=== PATIENT | male | born 1980 | race Caucasian/White ===

== ENCOUNTER 2021-11-15 19:30 | Inpatient (IN) | payer OTHER ==
--- OUTSIDE RECORDS SUMMARY | 2021-11-15 19:32 | XMS REPORT | Continuity of Care Document ---
:1980 Author Organization [facility] t Address [address] [place] [address] Care Team Providers Name Role Phone Luis Harris Primary Care Physician Therapy, Adc Covid Infusion Attending Clinician Unavailable Carlos Manuel Braswell MD Attending Clinician CARLOS MANUEL BRASWELL Attending Clinician Unavailable JUAN_Amanda Attending Clinician Unavailable Doctor Unassigned, [place] Attending Clinician Unavailable Venkatesh Martinez Attending Clinician [phone] TANO Admitting Clinician Unavailable Payers Payer Name Policy Type Policy Number Effective Date Expiration Date S ajit [place] [id number] 2019 00:[place]:00 [place] Problems This patient has no known problems. Allergies, Adverse Reactions, Alerts Allergy Allergy Status Severity Reaction(s) Onset Inactive Treating Comm ents Source Name Type Date Date Clinician NO KNOWN Drug Active Univers ALLERGIE Class ity of S [facility] Social History Social Habit Start Date Stop Date Quantity Comments Source Sex Assigned At [birth year] [facility] 00:00:00 00:00:00 [facility] Branch Smoking Status Start Date Stop Date Source Unknown if ever smoked [facility] Medications Ordered Filled Start Stop Current Ordering Indication Dosage Frequency Signature Comments Components Source Medication Medication Date Date Medication? Clinician (SIG) Name Name casirivimab 202- No [id number] 1200mg 1,200 mg, Univers -imdevimab 10-20 Subcutaneo it y of (REGEN-COV 23:00: 21:49 [place], ONCE, [place] (EUA)) 00 :00 1 dose, Medical injection 10/20/20 Bran ch 1,200 mg at 1800, Routine Vital Signs Vital Name Observation Time Observation Value Comments Source Systolic blood 2020-10-20 22:28:00 128 mm[Hg] Univer sity of pressure [facility] Diastolic blood 2020-10-20 22:28:00 86 mm[Hg] Unive rsity of [facility] Heart rate 2020-10-20 22:28:00 87 /min [facility] Body temperature 2020-10-20 22:28:00 36.89 [facility] Respiratory rate 2020-10-20 22:28:00 19 /min [facility] Oxygen saturation in 2020-10-20 22:28:00 95 /min [facility] Arterial blood by [facility] Pulse oximetry [place] Body height 2020-10-20 21:42:00 182.9 cm [facility] Body weight 2020-10-20 21:42:00 104.327 kg [facility] BMI 2020-10-20 21:42:00 31.19 kg/m2 [facility] Procedures Procedure Date / Time Performed Performing Clinician Cristi KINGTRAC2 CONSENT 2020-10-20 05:01:00 Doctor Unassigned, No Unive [facility] Encounters Start End Encounter Admission Attending Care Care Encounter Source Date/Time Date/Time Type Type Clinicians Facility Department ID 2020-10-20 2020-10-20 Nurse Therapy, Adc Covid Infusion [facility] [id number] Univers 16:05:40 17:05:40 Visit Carlos Manuel Braswell [id number] [place] [id number] Zuleyma driscoll Surgical [id number] [facility] 0[address] Branch 2020-10-20 2020-10-20 Outpatient Monica BRASWELL [facility] [id number] Univers 17:00:00 17:00:00 CARLOS MANUEL rick [facility] 2020-10-20 2020-10-20 Outpatient [facility] [id number] [place] 03:10:00 03:10:00 [id number] 2020-10-20 2020-10-20 Orders Doctor RENETTA [id number] Univers 00:00:00 00:00:00 Only Unassigned, JOSE [id number] ity of [place] [facility] [id number] [place] as [id number] [place] [address] Branch 2020-10-20 2020-10-20 Outpatient Juan [facility] [id number] 00:00:00 00:00:00 Venkatesh [id number] Results This patient has no known results.
[2021-11-15 20:44] LABS: Absolute Lymphocytes (CBC) 2.6 K/uL (0.7-4.9); Hematocrit 49.7 % (39.6-49.0); Lymphocytes % 34.6 % (15.3-44.8); MCV 88.6 fL (80-100); MPV 6.9 fL (7.6-11.3); RBC Red Blood Cell Count 5.61 M/uL (4.33-5.43)
[2021-11-15] MEDS ORDERED: METOPROLOL TAR 50 MG TAB ONE (20:50)
[2021-11-15] MEDS ORDERED: ASPIRIN 81 MG CHEWABLE TABLET ONE (20:50)
[2021-11-15] MEDS ORDERED: METOPROLOL TARTRATE 5 MG/5 ML INJ IV ONE (20:50)
[2021-11-15 20:55] LABS: Magnesium 2.3 mg/dL (1.8-2.4); Potassium 3.8 mmol/L (3.5-5.1)
[2021-11-15 20:56] LABS: Protime INR 1.08
[2021-11-15 21:01] LABS: Troponin High Sensitivity 17.9 pg/mL (<58.9)
[2021-11-15 21:14] LABS: Urine Blood Negative (Negative); Urine Glucose Negative (Negative); Urine Protein Negative (Negative)
[2021-11-15 21:32] LABS: Barbiturates NEGATIVE (NEGATIVE); Benzodiazepines NEGATIVE (NEGATIVE); Cocaine NEGATIVE (NEGATIVE); METHAMPHETAM NEGATIVE (NEGATIVE); Methadone NEGATIVE (NEGATIVE); Opiates NEGATIVE (NEGATIVE); Phencyclidine NEGATIVE (NEGATIVE); THC Cannibis NEGATIVE (NEGATIVE)
--- NOTE | 2021-11-15 21:45 | RAD REPORT ---
EXAM DESCRIPTION: CT - Chest For Pe Angio - 11/15/2021 9:18 pm CLINICAL HISTORY: shortness of breath COMPARISON: Chest Single View dated 11/15/2021 TECHNIQUE: Dynamically enhanced 3 mm thick images of the chest were obtained during administration o f approximately 150mL Isovue 370 IV contrast. Coronal and oblique MIP reconstruction images were gene rated and reviewed. Exam utilizes a protocol to evaluate the pulmonary arterial tree. All CT scans are performed using dose optimization technique as appropriate and may include automated exposure control or mA/KV adjustment according to patient size. FINDINGS: No pulmonary emboli are identified. The aorta as imaged shows no acute or suspicious finding. No pericardial thickening or effusion. No mass or dense consolidation. Minimal ground-glass opacities are present in each lower lobe probabl y atelectasis. Minimal alveolar edema is possible. No pleural effusion or pleural thickening. No mediastinal or hilar suspicious masses. No chest wall masses or abnormal axillary lymphadenopathy. IMPRESSION: No pulmonary emboli identified. Minimal bilateral lower lobe ground-glass opacities are favored to be atelectasis rather than infiltr ate or edema.
[2021-11-15 21:50] LABS: Urine Crystals Unidentified Few /HPF (None Seen); Urine RBC <5 /HPF (None Seen)
--- NOTE | 2021-11-15 21:50 | RAD REPORT ---
EXAM DESCRIPTION: RAD - Chest Single View - 11/15/2021 9:27 pm CLINICAL HISTORY: PALPITATIONS COMPARISON: Portable 03/29/2017 TECHNIQUE: AP portable chest image was obtained 11/15/2021 9:27 pm . FINDINGS: Lung volumes are low accentuating lung parenchymal pattern. This limits lung base assessme nt. No significant degree of failure or volume overload seen. No focal consolidation. Heart and vasculature are normal. No measurable pleural effusion and no pneumothorax. No acute bony abnormality seen. No acute aortic findings suspected. IMPRESSION: Limited portable study without acute cardiopulmonary finding.
[2021-11-15] MEDS ORDERED: ENOXAPARIN 100 MG/ML SYR SQ ONE (22:05)
[2021-11-15] MEDS ORDERED: DIGOXIN 0.25 MG/ML AMP ONE (22:05)
[2021-11-15 22:45] LABS: SARS-CoV-2 Antigen Rapid Res Negative (Negative)
[2021-11-15 22:57] LABS: T3 Free 3.54 pg/mL (2.18-3.98)
[2021-11-15] MEDS ORDERED: NA CHLORIDE 0.9% 1,000 ML ONE (23:08)
[2021-11-15] MEDS ORDERED: SOTALOL HCL 80 MG TAB ONE (23:08)
--- NOTE | 2021-11-15 23:17 | P.HP ---
Certification for Inpatient Patient admitted to: Inpatient With expected LOS: <2 Midnights Patient will require the following post-hospital care: None Practitioner: I am a practitioner with admitting privileges, knowledge of patient current condition, hospital course, and medical plan of care. Services: Services provided to patient in accordance with Admission requirements found in Title 42 Section 412.3 of the Code of Federal Regulations Patient History Date of Service: 11/16/21 Reason for admission: Afib RVR History of Present Illness: Patient is a 41 year old male with afib and HTN who presented to the ED with complaints of palpitations and shortness of breath. He reports that he woke up from a nap today around 7PM and noticed it. He is not on any anticoagulants or rate controlling medications. Patient reports that he feels himself go into afib RVR every 2-3 weeks but it typically goes away quickly. He was hospitalized in 2018 for afib RVR and had to be cardioverted. Today, his rate has been fluctuating from 110s-160s. He was given several rounds of PO metoprolol, IV metoprolol, and digoxin without significant improvement. Cardiology was consulted and recommended sotalol and therapeutic lovenox. BP has been stable. Patient is awake, alert, in no distress. He is admitted for further management. Allergies codeine Allergy (Verified 03/29/17 05:53) Hives/Rash Home medications list reviewed: Yes Home Medications: Aspirin 81 mg PO DAILY #30 tab.chew 03/30/17 Sotalol HCl [Betapace*] 80 mg PO BID 6AM 6PM #60 tab 03/30/17 - Past Medical/Surgical History Has patient received pneumonia vaccine in the past: No -: Afib -: Hypertension Past Surgical History: Patient denies surgical history Psychosocial/ Personal History: Patient is . - Family History Family History: Reviewed- Non-Contributory - Family History Father -: Cancer - Social History Smoking Status: Current some day smoker (vapes) Alcohol use: No CD- Drugs: No Caffeine use: Yes Place of Residence: Home Review of Systems Respiratory: Shortness of Breath Cardiovascular: Palpitations Physical Examination - Physical Exam General: Alert, In no apparent distress HEENT: Atraumatic, PERRLA, EOMI, Sclerae nonicteric Neck: Supple, 2+ carotid pulse no bruit, No LAD, Without JVD or thyroid abnormality Respiratory: Clear to auscultation bilaterally, Normal air movement Cardiovascular: Irregular heart rate/rhythm Gastrointestinal: Normal bowel sounds, No tenderness Musculoskeletal: No tenderness Integumentary: No rashes Neurological: Normal speech, Normal strength at 5/5 x4 extr, Normal tone, Normal affect - Studies Laboratory Data (last 24 hrs) 11/15/21 20:30: PT 11.9, INR 1.08 11/15/21 20:30: WBC 7.50, Hgb 16.9, Hct 49.7 H, Plt Count 305 11/15/21 20:30: Sodium 140, Potassium 3.8, BUN 13, Creatinine 1.20, Glucose 101, Magnesium 2.3 Assessment and Plan - Problems (Diagnosis) (1) Atrial fibrillation with rapid ventricular response Current Visit: Yes Status: Acute (2) Hypertension Current Visit: Yes Status: Acute Qualifiers: Hypertension type: primary hypertension Qualified Code(s): I10 - Essential (primary) hypertension - Plan -Cardiology consult -Monitor on telemetry -Therapeutic lovenox q12h -Sotalol 80 mg PO BID -Patient has required cardioversion in past -IV fluids for BP support -Reconcile and continue home medications -Monitor and replete electrolytes per protocol -Full code Discharge Plan: Home Plan to discharge in: 48 Hours - Advance Directives Does patient have a Living Will: No Does patient have a Durable POA for Healthcare: No - Code Status/Comfort Care Code Status Assessed: Yes (Full) Critical Care: No Time Spent Managing Pts Care (In Minutes): 50
--- NOTE | 2021-11-15 23:22 | ER ---
Nurse's Notes [facility] Name: Shan Mendieta Age: 41 yrs Sex: Male : 1980 Arrival Date: 11/15/2021 Time: 19:33 Bed 8 Private MD: Diagnosis: Unspecified atrial fibrillation Presentation: 11/15 19:46 Chief complaint: Patient states: "I think my a-fib is acting up. I feel like my heart as6 is racing and it's hard to catch my breath". Coronavirus screen: At this time, the client does not indicate any symptoms associated with coronavirus-19. Ebola Screen: No symptoms or risks identified at this time. Initial Sepsis Screen: Does the patient meet any 2 criteria? No. Patient's initial sepsis screen is negative. Does the patient have a suspected source of infection? No. Patient's initial sepsis screen is negative. Risk Assessment: Do you want to hurt yourself or someone else? Patient reports no desire to harm self or others. Onset of symptoms was November 15, 2021 at 18:30. 19:46 Method Of Arrival: Ambulatory as6 19:46 Acuity: MIRLANDE 3 as6 Triage Assessment: 19:51 General: Appears in no apparent distress. Behavior is calm, cooperative. Pain: as6 Complains of pain in chest. Cardiovascular: Reports palpitations, shortness of breath. Respiratory: Reports shortness of breath Respiratory effort is even, unlabored. Historical: - Allergies: 19:49 No Known Drug Allergies; as6 - Home Meds: 19:49 lisinopril 30 mg Oral tab 1 tab twice a day [Active]; as6 - PMHx: 19:49 palpitations; Migraines; as6 - PSHx: 19:49 None; as6 - Immunization history:: Client reports having NOT received the Covid vaccine. - Social history:: Smoking status: Reported history of juuling and/or vaping. Screenin:00 Abuse screen: Denies threats or abuse. Nutritional screening: No deficits noted. jb4 Tuberculosis screening: No symptoms or risk factors identified. Fall Risk None identified. Assessment: 20:00 General: Appears in no apparent distress. comfortable, Behavior is calm, cooperative, jb4 appropriate for age. Pain: Denies pain. Neuro: Level of Consciousness is awake, alert, obeys commands, Oriented to person, place, time, situation. Cardiovascular: Patient's skin is warm and dry. Rhythm is SVT. Respiratory: Airway is patent Respiratory effort is even, unlabored, Respiratory pattern is regular, symmetrical. GI: No signs and/or symptoms were reported involving the gastrointestinal system. : No signs and/or symptoms were reported regarding the genitourinary system. EENT: No signs and/or symptoms were reported regarding the EENT system. Derm: Skin is intact, Skin is pink, warm \\T\\ dry. Musculoskeletal: Circulation, motion, and sensation intact. Range of motion: intact in all extremities. 21:00 Reassessment: Patient appears in no apparent distress at this time. Patient and/or jb4 family updated on plan of care and expected duration. Pain level reassessed. Patient is alert, oriented x 3, equal unlabored respirations, skin warm/dry/pink. 21:14 Reassessment: Pt to CT'. jb4 21:32 Reassessment: Pt back from CT. jb4 22:00 Reassessment: Patient appears in no apparent distress at this time. Patient and/or jb4 family updated on plan of care and expected duration. Pain level reassessed. Patient is alert, oriented x 3, equal unlabored respirations, skin warm/dry/pink. 23:52 Reassessment: Patient appears in no apparent distress at this time. Patient and/or jb4 family updated on plan of care and expected duration. Pain level reassessed. Patient is alert, oriented x 3, equal unlabored respirations, skin warm/dry/pink. Patient states feeling better. 11/16 00:30 Reassessment: Patient appears in no apparent distress at this time. Patient and/or jb4 family updated on plan of care and expected duration. Pain level reassessed. Patient is alert, oriented x 3, equal unlabored respirations, skin warm/dry/pink. 01:30 Reassessment: Patient appears in no apparent distress at this time. Patient and/or jb4 family updated on plan of care and expected duration. Pain level reassessed. Patient is alert, oriented x 3, equal unlabored respirations, skin warm/dry/pink. Vital Signs: 11/15 19:46 BP 126 / 92; Pulse 74; Resp 16 S; Temp 99.0(O); Pulse Ox 100% on R/A; Weight 99.79 kg as6 (R); Height 6 ft. 0 in. (182.88 cm) (R); Pain 02/22; 20:55 BP 110 / 81; Pulse 171; Resp 19; Pulse Ox 98% on R/A; jb4 21:00 BP 127 / 86; Pulse 164; Resp 20 S; Pulse Ox 95% ; jb4 21:25 BP 123 / 81; Pulse 158; Resp 22 S; Pulse Ox 96% on R/A; jb4 22:16 BP 126 / 70; Pulse 160; Resp 27; Pulse Ox 96% on R/A; jb4 23:45 BP 126 / 90; Pulse 133; Resp 23; Pulse Ox 95% on R/A; jb4 11/16 00:30 BP 113 / 84; Pulse 121; Resp 16; Pulse Ox 98% on R/A; jb4 01:30 BP 122 / 87; Pulse 140; Resp 23; Pulse Ox 98% on R/A; jb4 11/15 19:46 Body Mass Index 29.84 (99.79 kg, 182.88 cm) as6 ED Course: 11/15 19:33 Patient arrived in ED. dt4 19:49 Triage completed. as6 19:50 Stefan Gamboa PA is PHCP. cp 19:50 Stefan Alejandro MD is Attending Physician. cp 19:51 Arm band placed on. as6 20:00 Patient has correct armband on for positive identification. Bed in low position. Call 4 light in reach. Side rails up X 1. Client placed on continuous cardiac and pulse oximetry monitoring. NIBP monitoring applied. 20:30 Initial lab(s) drawn, by me, sent to lab. Inserted saline lock: 18 gauge in left jb4 antecubital area, using aseptic technique. Blood collected. 20:52 Trent Mendes, ALEXANDER is Primary Nurse. jb4 22:20 Asset Analyst paged at 22:21. mw2 23:20 Lamin Rivera MD is Hospitalizing Provider. cp 11/16 08:39 SARS RAPID Sent. mb8 08:39 XRAY Chest (1 view) Sent. mb8 Administered Medications: 11/15 20:53 Drug: Aspirin Chewable Tablet 324 mg Route: PO; jb4 11/16 14:03 Follow up: Response: No adverse reaction mb8 11/15 20:53 Drug: Metoprolol 50 mg Route: PO; 4 11/16 14:03 Follow up: Response: No adverse reaction 8 11/15 20:55 Drug: Metoprolol 5 mg Route: IVP; Site: left antecubital; jb4 21:07 Drug: Metoprolol 5 mg Route: IVP; Site: left antecubital; jb4 21:32 Drug: Metoprolol 5 mg Route: IVP; Site: left antecubital; 4 11/16 14:03 Follow up: Response: No adverse reaction 8 11/15 22:15 Drug: Digoxin 0.5 mg Route: IVP; Site: left antecubital; 4 11/16 14:02 Follow up: Response: No adverse reaction 8 11/15 22:15 Drug: Lovenox (enoxaparin) 1 mg/kg Route: Sub-Q; Site: abdomen; 4 11/16 14:03 Follow up: Response: No adverse reaction 8 11/15 23:18 Drug: Sotalol 80 mg Route: PO; 4 11/16 14:03 Follow up: Response: No adverse reaction 8 11/15 23:18 Drug: NS 0.9% 1000 ml Route: IV; Rate: 1 bolus; Site: left antecubital; [facility] 11/16 00:42 Follow up: IV Status: Completed infusion; IV Intake: 1000ml ha1 00:25 Drug: Magnesium Sulfate 2 grams Route: IVPB; Infused Over: 2 hrs; Site: left kd3 antecubital; 02:46 Follow up: IV Status: Completed infusion; IV Intake: 50ml kd3 02:44 CANCELLED (Duplicate Order): Magnesium Sulfate 1 grams IVPB once over 1 hrs kd3 Medication: 11/15 20:00 VIS not applicable for this client. jb4 Intake: 11/16 00:42 IV: 1000ml; Total: 1000ml. ha1 02:46 IV: 50ml; Total: 1050ml. kd3 Outcome: 11/15 23:21 Decision to Hospitalize by Provider. 11/16 14:43 Patient left the ED. jd3 Signatures: Stefan Gamboa PA PA cp Bryson, James, RN RN jb4 Edward Stevens RN RN jd3 Kasie Lopez 2 Home Franks RN RN as6 Lexie Wright RN RN kd3 Shania Nguyen, RN RN ha1 Steven Amaya RN RN mb8 Iveth Mcclelland dt4 Corrections: (The following items were deleted from the chart) 02:44 00:56 Magnesium Sulfate 1 grams IVPB in left antecubital over 1 hrs kd3 kd3 02:45 02:45 Magnesium Sulfate 2 grams IVPB in left antecubital over 2 hrs kd3 kd3
--- NOTE | 2021-11-15 23:22 | EDPHYS ---
Physician Documentation [facility] Name: Shan Mendieta Age: 41 yrs Sex: Male : 1980 Arrival Date: 11/15/2021 Time: 19:33 Bed 8 Private MD: ED Physician Stefan Alejandro HPI: 11/15 20:05 This 41 yrs old Male presents to ER via Ambulatory with complaints of Breathing cp Difficulty, HEART RACING. 20:05 The patient presents with a history of heart racing. cp 20:05 Context: The symptoms occur at rest. Onset: The symptoms/episode began/occurred today. cp Duration: The patient or guardian reports a single episode, that is still ongoing, and unchanged. Associated signs and symptoms: Pertinent positives: SOB, Pertinent negatives: chest pain, cough, fever, syncope, vomiting. Severity of symptoms: in the emergency department the symptoms are unchanged despite home interventions. The patient has experienced similar episodes in the past, a few times, today's symptoms are similar, to when the patient was apparently diagnosed with atrial fibrillation. Historical: - Allergies: 19:49 No Known Drug Allergies; as6 - Home Meds: 19:49 lisinopril 30 mg Oral tab 1 tab twice a day [Active]; as6 - PMHx: 19:49 palpitations; Migraines; as6 - PSHx: 19:49 None; as6 - Immunization history:: Client reports having NOT received the Covid vaccine. - Social history:: Smoking status: Reported history of juuling and/or vaping. ROS: 20:10 Constitutional: Negative for body aches, chills, fever, poor PO intake. cp 20:10 Eyes: Negative for injury, pain, redness, and discharge. cp 20:10 ENT: Negative for drainage from ear(s), ear pain, sore throat, difficulty swallowing, difficulty handling secretions. 20:10 Cardiovascular: Positive for palpitations, Negative for chest pain, edema. 20:10 Respiratory: Positive for shortness of breath, Negative for cough, wheezing. 20:10 Abdomen/GI: Negative for abdominal pain, vomiting, diarrhea, constipation. 20:10 Back: Negative for injury or acute deformity, pain at rest, pain with movement, radiated pain. 20:10 : Negative for urinary symptoms. 20:10 Neuro: Negative for altered mental status, dizziness, syncope, weakness. 20:10 All other systems are negative. Exam: 20:15 Constitutional: The patient appears in no acute distress, alert, awake, comfortable, cp non-diaphoretic, non-toxic, well developed, well nourished. 20:15 Head/Face: Normocephalic, atraumatic. cp 20:15 Eyes: Periorbital structures: appear normal, Conjunctiva: normal, no exudate, no injection, Sclera: no appreciated abnormality, Lids and lashes: appear normal, bilaterally. 20:15 ENT: External ear(s): are unremarkable, Nose: is normal, Mouth: Lips: moist, Oral mucosa: pink and intact, moist, Posterior pharynx: Airway: no evidence of obstruction, patent, swelling, is not appreciated, erythema, is not appreciated. 20:15 Neck: ROM/movement: is normal, is supple, without pain, no range of motions limitations. 20:15 Chest/axilla: Inspection: normal, Palpation: is normal, no crepitus, no tenderness. 20:15 Cardiovascular: Rate: normal, Edema: is not appreciated, JVD: is not appreciated. 20:15 Respiratory: the patient does not display signs of respiratory distress, Respirations: normal, no use of accessory muscles, no retractions, labored breathing, is not present, Breath sounds: are clear throughout, no decreased breath sounds, no stridor, no wheezing. 20:15 Abdomen/GI: Inspection: abdomen appears normal, Bowel sounds: active, all quadrants, Palpation: abdomen is soft and non-tender, in all quadrants. 20:15 Back: pain, is absent, ROM is normal. 20:15 Skin: cellulitis, is not appreciated, no rash present. 20:15 Neuro: Orientation: to person, place \T\ time. Mentation: is normal, Cerebellar function: is grossly normal, Motor: moves all fours, strength is normal, Sensation: is normal. 20:35 ECG was reviewed by the Attending Physician. cp Vital Signs: 19:46 BP 126 / 92; Pulse 74; Resp 16 S; Temp 99.0(O); Pulse Ox 100% on R/A; Weight 99.79 kg as6 (R); Height 6 ft. 0 in. (182.88 cm) (R); Pain 1/10; 20:55 BP 110 / 81; Pulse 171; Resp 19; Pulse Ox 98% on R/A; jb4 21:00 BP 127 / 86; Pulse 164; Resp 20 S; Pulse Ox 95% ; jb4 21:25 BP 123 / 81; Pulse 158; Resp 22 S; Pulse Ox 96% on R/A; jb4 22:16 BP 126 / 70; Pulse 160; Resp 27; Pulse Ox 96% on R/A; jb4 23:45 BP 126 / 90; Pulse 133; Resp 23; Pulse Ox 95% on R/A; jb4 11/16 00:30 BP 113 / 84; Pulse 121; Resp 16; Pulse Ox 98% on R/A; jb4 01:30 BP 122 / 87; Pulse 140; Resp 23; Pulse Ox 98% on R/A; jb4 11/15 19:46 Body Mass Index 29.84 (99.79 kg, 182.88 cm) as6 MDM: 11/15 19:52 Patient medically screened. [facility] 22:30 Physician consultation: Hayden Henley MD was contacted at 22:31, regarding consult, cp patient's condition, wants Sotolol 80 mg to be given now and then 80 mg BID. 23:00 Data reviewed: vital signs, nurses notes, lab test result(s), EKG, radiologic studies, cp CT scan, plain films. 23:00 Differential diagnosis: arrythmia, dehydration, stress disorder. Test interpretation: cp by ED physician or midlevel provider: ECG, plain radiologic studies. Physician consultation: Karey Henry PA-C was contacted at 23:00, regarding admission, patient's condition, and will see patient in ED. 11/15 20:25 Order name: Basic Metabolic Panel cp 11/15 20:25 Order name: CBC with Diff cp 11/15 20:25 Order name: D-Dimer cp 11/15 20:25 Order name: Magnesium cp 11/15 20:25 Order name: NT PRO-BNP cp 11/15 20:25 Order name: PT-INR cp 11/15 20:25 Order name: Troponin HS cp 11/15 20:32 Order name: TSH cp 11/15 20:32 Order name: T3 Free cp 11/15 20:32 Order name: Urine Microscopic Only cp 11/15 20:32 Order name: UDS cp 11/15 20:51 Order name: CBC with Automated Diff; Complete Time: 21:44 EDMS 11/15 21:44 Interpretation: Normal except: RBC 5.61; HCT 49.7; MPV 6.9. cp 11/15 20:55 Order name: Basic Metabolic Panel; Complete Time: 00:35 EDMS 11/15 20:55 Order name: Magnesium; Complete Time: 00:35 EDMS 11/15 20:25 Order name: XRAY Chest (1 view) cp 11/15 20:56 Order name: Protime (+INR); Complete Time: 21:44 EDMS 11/15 20:56 Order name: D-Dimer; Complete Time: 21:44 EDMS 11/15 21:02 Order name: Troponin High Sensitivity; Complete Time: 00:35 EDMS 11/15 21:02 Order name: NT PRO-BNP; Complete Time: 00:35 EDMS 11/15 21:14 Order name: Urine Dipstick-Ancillary; Complete Time: 21:44 EDMS 11/15 21:32 Order name: Urine Drug Screen; Complete Time: 21:44 EDMS 11/15 21:50 Order name: Urine Microscopic Only; Complete Time: 21:51 EDMS 11/15 21:52 Order name: SARS RAPID cp 11/15 22:45 Order name: SARS-COV-2 Antigen Rapid; Complete Time: 00:35 EDMS 11/15 22:57 Order name: T3 Free; Complete Time: 00:35 EDMS 11/15 22:57 Order name: Thyroid Stimulating Hormone; Complete Time: 00:35 EDMS 11/16 05:50 Order name: CBC with Automated Diff; Complete Time: 08:20 EDMS 11/16 06:12 Order name: Basic Metabolic Panel; Complete Time: 08:20 EDMS 11/16 06:12 Order name: Lipid Profile; Complete Time: 08:20 EDMS 11/16 06:12 Order name: Magnesium; Complete Time: 08:20 EDMS 11/15 20:04 Order name: EKG; Complete Time: 20:04 cp 11/15 20:04 Order name: EKG - Nurse/Tech; Complete Time: 20:58 cp 11/15 20:25 Order name: Cardiac monitoring; Complete Time: 20:48 cp 11/15 20:25 Order name: IV Saline Lock; Complete Time: 20:58 cp 11/15 20:25 Order name: Labs collected and sent; Complete Time: 20:58 cp 11/15 20:25 Order name: O2 Per Protocol; Complete Time: 20:58 cp 11/15 20:25 Order name: O2 Sat Monitoring; Complete Time: 20:57 cp 11/15 20:32 Order name: Urine Dipstick-Ancillary (obtain specimen); Complete Time: 21:36 cp 11/15 20:50 Order name: CT Chest For PE Angio cp 11/15 21:46 Order name: CT; Complete Time: 21:51 EDMS 11/15 21:51 Order name: RAD; Complete Time: 21:51 EDMS 11/16 08:22 Order name: NPO; Complete Time: 08:39 denisse EC:35 Rate is 147 beats/min. Rhythm is irregular. QRS interval is normal. QT interval is cp normal. Interpreted by me. Reviewed by me. Administered Medications: 20:53 Drug: Aspirin Chewable Tablet 324 mg Route: PO; 11/16 14:03 Follow up: Response: No adverse reaction 11/15 20:53 Drug: Metoprolol 50 mg Route: PO; 11/16 14:03 Follow up: Response: No adverse reaction 11/15 20:55 Drug: Metoprolol 5 mg Route: IVP; Site: left antecubital; 4 21:07 Drug: Metoprolol 5 mg Route: IVP; Site: left antecubital; 4 21:32 Drug: Metoprolol 5 mg Route: IVP; Site: left antecubital; 4 11/16 14:03 Follow up: Response: No adverse reaction 11/15 22:15 Drug: Digoxin 0.5 mg Route: IVP; Site: left antecubital; 4 11/16 14:02 Follow up: Response: No adverse reaction 11/15 22:15 Drug: Lovenox (enoxaparin) 1 mg/kg Route: Sub-Q; Site: abdomen; 11/16 14:03 Follow up: Response: No adverse reaction 11/15 23:18 Drug: Sotalol 80 mg Route: PO; 4 11/16 14:03 Follow up: Response: No adverse reaction 11/15 23:18 Drug: NS 0.9% 1000 ml Route: IV; Rate: 1 bolus; Site: left antecubital; jb4 11/16 00:42 Follow up: IV Status: Completed infusion; IV Intake: 1000ml ha1 00:25 Drug: Magnesium Sulfate 2 grams Route: IVPB; Infused Over: 2 hrs; Site: left kd3 antecubital; 02:46 Follow up: IV Status: Completed infusion; IV Intake: 50ml kd3 02:44 CANCELLED (Duplicate Order): Magnesium Sulfate 1 grams IVPB once over 1 hrs kd3 Disposition Summary: 11/15/21 23:21 Hospitalization Ordered Hospitalization Status: Inpatient Admission cp Provider: Lamin Rivera cp Condition: Stable cp Problem: new cp Symptoms: have improved cp Bed/Room Type: Standard cp Location: Telemetry/MedSurg (Inpatient)(11/16/21 13:57) bd Room Assignment: 419(11/16/21 13:57) bd Diagnosis - Unspecified atrial fibrillation cp Forms: - Medication Reconciliation Form cp - SBAR form cp Signatures: Dispatcher [employer] EDTejal Tabor Corey, MD MD cha Page, Corey, PA PA cp Stacy Rock RN RN cg Bryson, James RN RN jb4 Home Franks RN RN as6 Lexie Wright RN RN kd3 Shania Nguyen RN ha1 Steven Amaya RN [id number] Corrections: (The following items were deleted from the chart) 11/15 23:54 23:21 Telemetry/MedSurg (Inpatient) cp cg 23:54 23:21 cp cg 11/16 02:44 00:36 Magnesium Sulfate 1 grams IVPB once over 1 hrs ordered. cp kd3 02:44 00:56 Magnesium Sulfate 1 grams IVPB once over 1 hrs given. kd3 kd3 02:44 02:44 Magnesium Sulfate 1 grams IVPB once over 1 hrs ordered. kd3 kd3 13:57 11/15 23:54 [facility] ER HOLD cg bd 11/16 13:57 11/15 23:54 ERHOLD- cg bd
[2021-11-16] MEDS ORDERED: SOTALOL HCL 80 MG TAB PO ONE (00:42)
[2021-11-16] MEDS ORDERED: Magnesium Sulfate 2gm IVPB 2 G/50 ML BAG IV ONE (00:46)
[2021-11-16] MEDS ORDERED: NA CHLORIDE 0.9% 1,000 ML ONE ×3 (00:47→07:38)
[2021-11-16] MEDS ORDERED: MAGNESIUM SULFATE 1 gm IVPB 0 GM/0 ML BAG IV ONE (00:49)
[2021-11-16] MEDS ORDERED: SOTALOL HCL 80 MG TAB ONE ×2 (00:49→06:15)
[2021-11-16] MEDS ORDERED: ACETAMINOPHEN 500 MG TAB PO PRN (01:59)
[2021-11-16] MEDS ORDERED: ONDANSETRON 4 MG/2 ML VIAL IV PRN (01:59)
[2021-11-16] MEDS: NA CHLORIDE 0.9% 1,000 ML IV SCH ×3 (01:59→17:53)
[2021-11-16 03:19] VITALS: BMI 31.1
[2021-11-16 05:48] LABS: Hematocrit 50.9 % (39.6-49.0); Lymphocytes % 39.6 % (15.3-44.8); MCV 90.9 fL (80-100); MPV 7.2 fL (7.6-11.3)
[2021-11-16] MEDS: SOTALOL HCL 80 MG TAB PO SCH ×2 (06:00→17:51)
[2021-11-16 06:11] LABS: Potassium 3.8 mmol/L (3.5-5.1)
[2021-11-16 06:12] LABS: Magnesium 2.6
[2021-11-16] MEDS ORDERED: ENOXAPARIN 100 MG/ML SYR SQ ONE (07:38)
[2021-11-16] MEDS: ENOXAPARIN 100 MG/ML SYR SQ SCH ×2 (07:45→20:53)
[2021-11-16] MEDS ORDERED: INFLUENZA VACCINE (for 6+ mo) 0.5 ML DOSE IMVAC ONE (09:00)
[2021-11-16] MEDS ORDERED: KCL 20 MEQ/100 mL IVPB 200 ML IV ONE (09:41)
[2021-11-16] MEDS: KCL 20 MEQ/100 mL IVPB 20 MEQ/100 ML BAG IV SCH ×2 (09:51→12:00)
--- NOTE | 2021-11-16 10:22 | CON ---
Date of Consultation: 11/16/2021 Reason For Consultation: Atrial fibrillation. History Of Present Illness: Mr. Mendieta is 41. Has had a history of AFib, hypertension, migraine. He supposed to be taking aspirin, lisinopril, and sotalol at home. He comes in back to the hospital wit h rapid atrial fibrillation, received metoprolol, received digoxin, continued to be in rapid AFib and was placed on sotalol. He remained in atrial fibrillation at this point. Rate is much better contr olled. Denied chest pain, nausea, vomiting, diaphoresis, PND, orthopnea, pedal edema, or syncope. D enied any fever or chills. Past Medical History: As stated above. Allergies: HE IS ALLERGIC TO CODEINE. Medications: As stated earlier. Review of Systems: Negative. Social History: Negative. Family History: Negative. Physical Examination: General: He is in atrial fibrillation. No acute distress, afebrile. Chest: Clear. Cardiac: Atrial fibrillation. No murmurs, gallops, or rubs. Abdomen: Benign. Extremities: Revealed no clubbing, cyanosis, or edema. Diagnostic Data: All within normal limits except for EKG showing atrial fibrillation. Impression And Plan: Paroxysmal atrial fibrillation. Echocardiogram is pending. Continue sotalol. We will also add digoxin to his regimen. Continue Lovenox for now. He really should be on anticoag ulation in the long run. If he does not convert with sotalol, we will plan a cardioversion down the road. MILAGRO Voice ID: [id number] Report ID: [id number]
[2021-11-16] MEDS ORDERED: FENTANYL CITR 100 MCG/2 ML ONE (12:04)
[2021-11-16] MEDS ORDERED: MIDAZOLAM HCL 10 ML ONE (12:05)
[2021-11-16] MEDS ORDERED: METOPROLOL TARTRATE 5 MG/5 ML INJ IV ONE (12:05)
[2021-11-16] MEDS ORDERED: ATROPINE SULF 1 MG/10 ML SYR IV ONE (12:05)
[2021-11-16] MEDS ORDERED: FLUMAZENIL 0.1 MG/ML (5 mL VIAL) IV ONE (12:05)
[2021-11-16] MEDS ORDERED: ONDANSETRON 4 MG/2 ML VIAL ONE (12:05)
[2021-11-16] MEDS ORDERED: PHENOL 1.4% ORAL SPRAY 180ML ONE (12:06)
[2021-11-16] MEDS ORDERED: LIDOCAINE VISCOUS 2% SOLN 15 ML UDC ONE (13:11)
[2021-11-16] MEDS ORDERED: propofoL 200 MG/20 ML VIAL IV ONE ×3 (13:25→13:28)
[2021-11-17 03:28] LABS: Absolute Lymphocytes (CBC) 2.3 K/uL (0.7-4.9); Hematocrit 47.3 % (39.6-49.0); Lymphocytes % 24.3 % (15.3-44.8); MCV 90.5 fL (80-100); MPV 7.3 fL (7.6-11.3); RBC Red Blood Cell Count 5.23 M/uL (4.33-5.43)
[2021-11-17 03:52] LABS: Potassium 3.8 mmol/L (3.5-5.1)
[2021-11-17] MEDS: NA CHLORIDE 0.9% 1,000 ML IV SCH (04:13)
[2021-11-17] MEDS ORDERED: POTASSIUM CL SA 10 MEQ TAB PO ONE (07:31)
--- NOTE | 2021-11-17 07:54 | EKG ---
Test Date: 2021-11-15 Test Time: 20:29:15 Staying Machine Operator: BREANNE MEASUREMENT RESULTS: Intervals: Rate: 147 DC: QRSD: 90 QT: 302 QTc: 472 [place]: P: DC: QRS: 19 T: 82 INTERPRETIVE STATEMENTS: Atrial fibrillation with rapid ventricular response with premature ventricular or aberrantly conducted complexes Nonspecific T wave abnormality Abnormal ECG Compared to ECG 03/29/2017 09:41:51 Ventricular premature complex(es) now present T-wave abnormality now present Sinus rhythm no longer present Electronically Signed On 11-17-21 07:48:34 CDT by Hayden Henley
[2021-11-17] MEDS: ENOXAPARIN 100 MG/ML SYR SQ SCH (08:09)
[2021-11-17] MEDS: SOTALOL HCL 80 MG TAB PO SCH (08:09)
--- NOTE | 2021-11-17 08:39 | TEE ---
TRANSESOPHAGEAL ECHOCARDIOGRAM REPORT CARDIOLOGY DEPARTMENT DATE OF STUDY: 11/16/2021 HEIGHT: 72 WEIGHT: 230 DIAGNOSIS: ATRIAL FIBRILLATION SCIENTIFIC WRITER COMMENTS: LELAND PERFORMED BY DR. BELTRAN CARDIAC HISTORY: CATHERIZATION: NO SURGERY: NO PROSTHETIC VALVE: NO PACEMAKER: NO 2 DIMENSIONAL ASSESSMENT: RIGHT ATRIUM: NORMAL LEFT ATRIUM: DILATED RIGHT VENTRICLE: NORMAL LEFT VENTRICLE: NORMAL TRICUSPID VALVE: NORMAL MITRAL VALVE: NORMAL PULMONIC VALVE: NORMAL AORTIC VALVE: NORMAL PERICARDIAL EFFUSION: NONE AORTIC ROOT: NORMAL EJECTION FRACTION: LEFT VENTRICULAR WALL MOTION: NORMAL DOPPLER/COLOR FLOW: TRACE TRICUSPID REGURGITATION. NORMAL RIGHT VENTRICULAR SYSTOLIC PRESSURE. COMMENTS: NORMAL TRANSESOPHAGEAL ECHOCARDIOGRAM. MILD LEFT ATRIAL ENLARGEMENT. NO THROMBUS. ATRIAL FIBRILLATION. NO EFFUSION. TECHNOLOGIST: Frieda FELIPE
[2021-11-17] MEDS ORDERED: KCL 20 MEQ/100 mL IVPB 20 MEQ/100 ML BAG IV SCH (09:00)
[2021-11-17 09:30] LABS: Potassium 4.1 mmol/L (3.5-5.1)
--- NOTE | 2021-11-17 12:51 | EKG ---
Test Date: 2021-11-16 Test Time: 13:38:16 Mobile Application Developer: AYANNA MEASUREMENT RESULTS: Intervals: Rate: 86 PA: 172 QRSD: 104 QT: 360 QTc: 430 [place]: P: 32 PA: 172 QRS: 1 T: 17 INTERPRETIVE STATEMENTS: Normal sinus rhythm Moderate voltage criteria for LVH, may be normal variant Borderline ECG Compared to ECG 11/15/2021 20:29:15 Left ventricular hypertrophy now present Atrial fibrillation no longer present Ventricular premature complex(es) no longer present T-wave abnormality no longer present Electronically Signed On 11-17-21 12:50:14 CDT by Hayden Henley
[2021-11-17 13:32] VITALS: O2SAT 95
[2021-11-17 16:36] VITALS: BP 139/83; TEMP 98.1
== END 2021-11-17 16:30 | disposition home or self-care (01) | DRG 310 ==
LOC: ER 19:30 → ERHOLD 23:13 → 4TH 11-16 14:30
PROVIDERS: ADMIT Hospitalist; ATTEND Hospitalist
DX: I48.0 Paroxysmal atrial fibrillation (principal); I10 Essential (primary) hypertension; F17.290 Nicotine dependence, other tobacco product, uncomplicated; Z88.5 Allergy status to narcotic agent; Z79.82 Long term (current) use of aspirin; Z79.899 Other long term (current) drug therapy; Z28.310 Unvaccinated for COVID-19; Z20.822 Contact with and (suspected) exposure to COVID-19
CPT/HCPCS: 36415; 71045; 71275; 80048; 80061; 80307; 81003; 81015; 83735; 83880; 84443; 84481; 84484; 85025; 85379; 85610; 87811; 92960; 93005; 93306; 93312; 96361; 96365; 96366; 96372; 96375; 99284; J1160; J1650; J2250; J2405; J2704; J3010; J3475; J3480; J7030; Q9967

== ENCOUNTER 2022-03-08 10:15 | Day surgery (SDC) | payer OTHER ==
[2022-03-03 13:32] LABS: Absolute Lymphocytes (CBC) 2.1 K/uL (0.7-4.9); Hematocrit 51.5 % (39.6-49.0); Lymphocytes % 27.9 % (15.3-44.8); MPV 7.2 fL (7.6-11.3)
[2022-03-03 13:42] LABS: Protime INR 1.32
--- NOTE | 2022-03-04 17:34 | EKG ---
Test Date: 2022-03-03 Test Time: 13:20:24 Construction Specialist: JUDITH MEASUREMENT RESULTS: Intervals: Rate: 58 TN: 156 QRSD: 108 QT: 418 QTc: 410 [place]: P: 47 TN: 156 QRS: 38 T: 23 INTERPRETIVE STATEMENTS: Sinus bradycardia Otherwise normal ECG Compared to ECG 11/16/2021 13:38:16 Sinus rhythm no longer present Left ventricular hypertrophy no longer present Electronically Signed On 03-04-22 17:31:10 PIPELINES LABORER by Gene Dyer
[2022-03-08] MEDS ORDERED: NA CHLORIDE 0.9% 500 ML ONE (10:36)
[2022-03-08] MEDS ORDERED: HEPA 1000U/500MLS 2,000 UNIT/1,000 ML BAG IV ONE (10:51)
[2022-03-08] MEDS ORDERED: MIDAZOLAM HCL 2 MG/2 ML INJ ONE (10:52)
[2022-03-08] MEDS ORDERED: VERAPAMIL HCL 10 MG/4 ML VIAL IV ONE (10:52)
[2022-03-08] MEDS ORDERED: HEPARIN 5000 UNIT/ML 1 ML VIAL ONE (10:52)
[2022-03-08] MEDS ORDERED: FENTANYL CITR 100 MCG/2 ML ONE (10:52)
[2022-03-08] MEDS ORDERED: NITROGLYCERIN 100 MCG/ML SYR (for cath lab use only) IV ONE (10:53)
[2022-03-08] MEDS ORDERED: ATROPINE SULF 1 MG/10 ML SYR IV ONE (10:53)
[2022-03-08] MEDS ORDERED: HEPARIN 10,000 UNIT/10 ML VIAL IV ONE (10:53)
[2022-03-08 11:03] VITALS: TEMP 97; O2SAT 100
[2022-03-08] MEDS ORDERED: NITROGLYCERIN/D5W 25 MG/250 ML BTL IV ONE (11:17)
[2022-03-08 13:47] VITALS: BP 110/70
--- NOTE | 2022-03-08 18:12 | OP ---
Date of Procedure: 03/08/2022 Surgeon: LIN BELTRAN Procedures Performed: 1.Selective coronary angiogram. 2.Left heart catheterization. Indication: Abnormal stress test. Access: Right radial artery 6-Thai closed with TR band. Complications: None. Bleeding: Less than 10 mL. Anesthesia: Total sedation time was 20 minutes. Used fentanyl and Versed. Description Of Procedure: After risks, benefits, alternatives were explained, the patient agreed to procedure and signed informed consent. The patient was brought into the cardiac catheterization [facility], prepped and draped in the usual sterile fashion. Then, I accessed right radial artery using pediatric micropuncture kit and placed a 6-Thai Slender sheath, took 5-Thai Blythe 4.0 catheter in to the aortic root, engaged left main, right coronary artery and then pushed the catheter over the wi re into the LV, measured the LVEDP and pullback did not record any gradient. Then, I removed the cat heter and sheath, placed TR band with good hemostasis. Findings: 1.Left main; large, normal. 2.LAD; large vessel, normal. Normal diagonal branches. 3.Left circumflex; large and dominant and normal. Normal OM branches. 4.RCA; small, nondominant and normal. 5.Normal LVEDP at 10 mmHg. Conclusion: 1.Normal coronary arteries. 2.Normal LVEDP. Recommendation: Medical management. /KRUPAL Voice ID: [id number] Report ID: [id number]
== END 2022-03-08 14:01 | disposition home or self-care (01) ==
LOC: CCL 10:15
PROVIDERS: ATTEND Internal Medicine
DX: R94.39 Abnormal result of other cardiovascular function study (principal); I48.91 Unspecified atrial fibrillation; I10 Essential (primary) hypertension; Z79.01 Long term (current) use of anticoagulants; Z79.899 Other long term (current) drug therapy; Z88.5 Allergy status to narcotic agent
CPT/HCPCS: 93005; 85025; 80048; 36415; 85610; 85730; 93458; C1893; Q9966; J1644 ×2; J7040; J0461; J2250; J3010